=== PATIENT | male | born 1945 | race African-American/Black ===

== ENCOUNTER 2016-09-17 07:11 | Emergency (ER) | payer OTHER ==
[~2016-09-17] VITALS: Ht 167.6 cm; Wt 77.1 kg
--- NOTE | ~2016-09-17 | EKG ---
[address] [address] [place] [address] ELECTROCARDIOGRAM REPORT Name: SAMANTHA ALEXANDRE Room #: AARON Lang#: [id number] Admission: 09/17/16 Attend Phys: Discharge: 09/17/16 Date of : 41 Report #: [id number] THIS REPORT FOR: //name// [facility] ED Test Date: 2016-09-17 Test Time: 07:17:44 Pat Name: SAMANTHA ALEXANDRE Department: Room: Gender: M [employer]: : 1945 Requested By: Nidia Lindsay Order Number: [id number] MD: Jakub Winn Measurements Intervals Lillie Rate: 78 P: 48 DE: 160 QRS: 83 QRSD: 93 T: 1 QT: 394 QTc: 449 Interpretive Statements Sinus rhythm Borderline right axis deviation Nonspecific T abnormalities, lateral leads No previous ECG available for comparison Electronically Signed On 09-17-2016 9:06:18 CDT by Jakub Winn [email or web address] <ELECTRONICALLY SIGNED> By: Jakub Winn MD, [facility] 09/17/16 [id number] Jakub Winn MD, FACC /EPI
[2016-09-17 07:43] LABS: ABSOLUTE NEUTROPHILS 9.9 thou/uL (1.4-8.2); EOSINOPHILS 1.2 % (0.0-3.0); HEMATOCRIT 38.8 % (42.0-52.0); LYMPHOCYTES 17.8 % (24.0-44.0); MCH 32.5 pg (26.0-34.0); MCHC 33.4 g/dL (28.0-37.0); MCV 97.1 fL (80.0-100.0); MONOCYTES 4.6 % (1.0-8.0); PLATELET COUNT 209 thou/uL (150-400); POLYS 75.4 % (36.0-66.0); RDW 13.4 % (10.5-14.5); WBC 13.2 thou/uL (4.0-11.0)
[2016-09-17 07:46] LABS: MANUAL DIFF NO
[2016-09-17 07:55] LABS: INR 2.5; PROTIME 25.1 Seconds (9.3-11.4)
[2016-09-17 08:23] LABS: CALCIUM 8.1 mg/dL (8.5-10.1)
[2016-09-17] MEDS ORDERED: FLONASE 0.05%50 MCG NASAL (08:49)
[2016-09-17 08:52] VITALS: BP 172/78
== END 2016-09-17 08:56 | disposition home or self-care (01) ==
LOC: ER 07:11
PROVIDERS: Emergency Medicine
DX: J06.9 Acute upper respiratory infection, unspecified (principal); J30.89 Other allergic rhinitis; R06.00 Dyspnea, unspecified; Z95.5 Presence of coronary angioplasty implant and graft; Z95.9 Presence of cardiac and vascular implant and graft, unspecified; F17.210 Nicotine dependence, cigarettes, uncomplicated